=== PATIENT | female | born 1985 | race Caucasian/White ===

== ENCOUNTER 2023-08-31 13:12 | Emergency (ER) | payer BC, MEDICAID ==
[2023-08-31] MEDS: Acetaminophen/oxyCODONE 325-5 MG Tab PO ONE (14:33)
[2023-08-31] MEDS: Ketorolac 60 MG/2 ML SDV IM ONE (14:33)
== END 2023-08-31 18:21 | disposition home or self-care (01) ==
LOC: EDUNIT# → JD.ED 13:12
DX: M76.61 Achilles tendinitis, right leg (principal); W19.XXXA Unspecified fall, initial encounter
CPT/HCPCS: 73610; 76881; 96372; 99284; A9270; J1885